=== PATIENT | male | born 1960 | race Caucasian/White ===

== ENCOUNTER 2018-12-13 15:30 | Emergency (ER) | payer BC, OTHER ==
[2018-12-13 15:43] VITALS: BP 113/71; PULSE 87; TEMP 99.8; BMI 29.0
[2018-12-13] MEDS ORDERED: predniSONE 20 MG TABLET (UD) PO ONE (16:11)
[2018-12-13] MEDS ORDERED: SODIUM CHLORIDE 1,000 ML IV STA (16:11)
[2018-12-13] MEDS ORDERED: ALBUTEROL SO4 2.5/IPRATROPIUM 0.5 INH SOL 3 ML VIAL.NEB. NEB ONE ×2 (16:11→16:15)
[2018-12-13] MEDS ORDERED: predniSONE 20 MG TABLET (UD) ONE (16:15)
--- NOTE | 2018-12-13 16:43 | PDOC ---
History of Present Illness - History of Present Illness Initial Comments: 12/13/18 16:44 The patient is a 58 year old male with a past medical history of autoimmune hepatitis and BPH who presents to the emergency department for evaluation of productive cough and wheezing since Wednesday. Patient reports productive cough with green sputum since Wednesday. He reports associated episodes of shortness of breath with wheezing, subjective fever, and generalized weakness since Wednesday. Patient reports pain with coughing. He reports visiting an Urgent Care today where he tested positive for type A influenza after having a nasal swab done. Patient states he was started on tamiflu prior to arrival. He reports visiting the emergency department due to concern for possible pneumonia and to have chest x-ray done. Denies receiving flu vaccination this year. The patient denies chest pain, headache, and dizziness. Denies fevers, chills, nausea, vomiting, diarrhea, and constipation. Denies urinary urgency, frequency , dysuria, and hematuria. Allergies: No known drug allergies. Social history: No reported cigarette, alcohol, or drug use. <Jus Koenig - Last Filed: 12/13/18 16:44> - General History Source: Patient Exam Limitations: No Limitations <Cheikh Bliss - Last Filed: 12/13/18 17:16> - General Chief Complaint: Respiratory Stated Complaint: COUGH Time Seen by Provider: 12/13/18 15:44 Past History <Jus Koenig - Last Filed: 12/13/18 16:44> - Past Medical History COPD: No Disorders: Yes (H/O BPH) Other medical history: H/O AUTOIMMUNE HEPATITIS, PT STATES CURED - Suicide/Smoking/Psychosocial Hx Smoking History: Never smoked Have you smoked in the past 12 months: No Information on smoking cessation initiated: No Hx Alcohol Use: (social) <Cheikh Bliss - Last Filed: 12/13/18 17:16> - Past Medical History Allergies/Adverse Reactions: Allergies Allergy/AdvReac Type Severity Reaction Status Date / Time No Known Allergies Allergy Verified 12/13/18 15:31 Home Medications: Ambulatory Orders Albuterol Sulfate Inhaler - [Ventolin HFA Inhaler -] 1 - 2 inh PO Q4H #1 inhaler 12/13/18 Azithromycin 250 mg PO DAILY #6 tablet 12/13/18 Oseltamivir Phosphate [Tamiflu] 75 mg PO BID 12/13/18 predniSONE [Deltasone -] 40 mg PO DAILY #4 tablet 12/13/18 Review of Systems - Review of Systems Comments:: GENERAL/CONSTITUTIONAL: (+)subjective fever. No chills. No weakness. HEAD, EYES, EARS, NOSE AND THROAT: No change in vision. No ear pain or discharge. No sore throat. CARDIOVASCULAR: (+)shortness of breath. No chest pain. RESPIRATORY: (+)productive cough. (+)wheezing. No hemoptysis. GASTROINTESTINAL: No nausea, vomiting, diarrhea or constipation. GENITOURINARY: No dysuria, frequency, or change in urination. MUSCULOSKELETAL: No joint or muscle swelling or pain. No neck or back pain. SKIN: No rash NEUROLOGIC: No headache, vertigo, loss of consciousness, or change in strength/ sensation. ENDOCRINE: No increased thirst. No abnormal weight change. HEMATOLOGIC/LYMPHATIC: No anemia, easy bleeding, or history of blood clots. ALLERGIC/IMMUNOLOGIC: No hives or skin allergy. <Jus Koenig - Last Filed: 12/13/18 16:44> *Physical Exam - Vital Signs Last Vital Signs Temp Pulse Resp BP Pulse Ox 99.8 F H 87 18 113/71 96 12/13/18 15:30 12/13/18 15:30 12/13/18 15:30 12/13/18 15:30 12/13/18 15:30 - Physical Exam Comments: GENERAL: Awake, alert, and fully oriented, in no acute distress HEAD: No signs of trauma EYES: PERRLA, EOMI, sclera anicteric, conjunctiva clear NECK: Normal ROM, supple. LUNGS: (+)Diffuse expiratory wheezing bilaterally. HEART: Regular rate and rhythm, normal S1 and S2, no murmurs, rubs or gallops EXTREMITIES: Normal range of motion, no edema. No clubbing or cyanosis. No cords, erythema, or tenderness NEUROLOGICAL: Cranial nerves II through XII grossly intact. Normal speech, normal gait SKIN: Warm, Dry, normal turgor, no rashes or lesions noted. <Jus Koenig - Last Filed: 12/13/18 16:44> - Vital Signs Last Vital Signs Temp Pulse Resp BP Pulse Ox 99.8 F H 87 18 113/71 96 12/13/18 15:30 12/13/18 15:30 12/13/18 15:30 12/13/18 15:30 12/13/18 15:30 <Cheikh Bliss - Last Filed: 12/13/18 17:16> Moderate Sedation - Procedure Monitoring Vital Signs: Procedure Monitoring Vital Signs Temperature 99.8 F H 12/13/18 15:30 Pulse Rate 87 12/13/18 15:30 Respiratory Rate 18 12/13/18 15:30 Blood Pressure 113/71 12/13/18 15:30 O2 Sat by Pulse Oximetry (%) 96 12/13/18 15:30 <Jus Koenig - Last Filed: 12/13/18 16:44> - Procedure Monitoring Vital Signs: Procedure Monitoring Vital Signs Temperature 99.8 F H 12/13/18 15:30 Pulse Rate 87 12/13/18 15:30 Respiratory Rate 18 12/13/18 15:30 Blood Pressure 113/71 12/13/18 15:30 O2 Sat by Pulse Oximetry (%) 96 12/13/18 15:30 <Cheikh Bliss - Last Filed: 12/13/18 17:16> ED Treatment Course - LABORATORY CBC & Chemistry Diagram: 12/13/18 16:34 12/13/18 16:34 - Medications Given in the ED: ED Medications Discontinued Medications Generic Name Dose Route Start Last Admin Trade Name Freq PRN Reason Stop Dose Admin Prednisone 40 mg 12/13/18 16:11 12/13/18 16:20 Deltasone - PO 12/13/18 16:12 40 mg ONCE ONE Administration <Jsu Koenig - Last Filed: 12/13/18 16:44> - LABORATORY CBC & Chemistry Diagram: 12/13/18 16:34 12/13/18 16:34 - RADIOLOGY Radiology Studies Ordered: Category Date Time Status CHEST X-RAY PORTABLE* [RAD] Stat Radiology 12/13/18 16:11 Taken - Medications Given in the ED: ED Medications Discontinued Medications Generic Name Dose Route Start Last Admin Trade Name Freq PRN Reason Stop Dose Admin Prednisone 40 mg 12/13/18 16:11 12/13/18 16:20 Deltasone - PO 12/13/18 16:12 40 mg ONCE ONE Administration <Cheikh Bliss - Last Filed: 12/13/18 17:16> Medical Decision Making - Medical Decision Making 12/13/18 16:38 A portion of this note was documented by scribe services under my direction. I have reviewed the details of the note, within reason, and agree with the documentation with the following case summary and management plan written by me. Patient treated in the ED. Nursing notes are reviewed and incorporated into the medical decision-making. Vital signs reviewed. Peripheral IV access obtained by the nurse, laboratory studies are drawn and sent, reviewed and interpreted by myself. Vital Signs Temp Pulse Resp BP Pulse Ox 99.8 F H 87 18 113/71 96 12/13/18 15:30 12/13/18 15:30 12/13/18 15:30 12/13/18 15:30 12/13/18 15:30 58 year old male with past medical history of autoimmune hepatitis in remission , lip carcinoma s/p Moh's resection, BPH s/p TURP p/w weakness, cough, wheezing. Two days ago, started to develop greenish productive cough, tactile fevers and chills. Went to urgent care at [place] [facility] and was diagnosed with influenza type A and was prescribed tamiflu. However, pt reported feeling wheezing, tight breath sounds, and generally weak. The patient is quite wheezy. Will treat with duonebs and prednisone. However, will obtain chest xray to r/o PNA. Labs. I suspect that the patient has influenza with possible bronchitis or pneumonia. Reassess. 12/13/18 17:11 CURB 65 = 0 Pt reports significant improvement with steroids and duoneb. Chest xray starting to developing some questionable early right sided infiltrate. Will treat as broncho-pneumonia. Initiate azithromycin. Will d/c with albuterol and prednisone. Pt encouraged to take tamiflu. Pt feels like he can go home. Supportive care and f/u with PMD. I discussed the physical exam findings, ancillary test results and final diagnoses with the patient. I answered all of the patient's questions. The patient was satisfied with the care received and felt comfortable with the discharge plan and treatment plan. The patient will call their primary care physician within 24 hours to arrange follow-up and will return to the Emergency Department with any new, persistant or worsening symptoms. <Cheikh Bliss - Last Filed: 12/13/18 17:16> *DC/Admit/Observation/Transfer - Attestations Scribe Attestion: Documentation prepared by Jus Koenig, acting as medical illustrator for Cheikh Bliss MD. <Jus Koenig - Last Filed: 12/13/18 16:44> - Discharge Dispostion Decision to Admit order: No <Cheikh Bliss - Last Filed: 12/13/18 17:16> Diagnosis at time of Disposition: Bronchitis, Influenza - Discharge Dispostion Disposition: HOME Condition at time of disposition: Stable - Prescriptions Prescriptions: Albuterol Sulfate Inhaler - [Ventolin HFA Inhaler -] 1 - 2 inh PO Q4H #1 inhaler Azithromycin 250 mg PO DAILY #6 tablet predniSONE [Deltasone -] 40 mg PO DAILY #4 tablet - Patient Instructions Printed Discharge Instructions: DI for Acute Bronchitis, DI for Influenza -- Adult Additional Instructions: Continue taking the albuterol every 4 hours as needed for wheezing. Take 40 mg prednisone daily. Continue taking the tamiflu. Please start taking the azithromcyin. Follow up with your doctor.
[2018-12-13 16:59] LABS: HEMATOCRIT 42.7 % (35.4-49); HEMOGLOBIN 13.8 GM/dl (11.7-16.9); MCHC 32.3 g/dl (32.0-35.9); MEAN CELL VOLUME 89.7 fl (80-96); MEAN PLT VOLUME 8.5 fl (7.5-11.1); PLATELET COUNT 240 K/MM3 (134-434); RBC 4.76 M/mm3 (4.00-5.60); WHITE BLOOD COUNT 10.5 K/mm3 (4.0-10.8)
[2018-12-13 17:01] LABS: ALBUMIN 3.6 g/dl (3.4-5.0); ALK PHOS 67 U/L (45-117); ANION GAP 11 MMOL/L (8-16); BILIRUBIN,TOTAL 0.7 mg/dl (0.2-1); BLOOD UREA NITROGEN 10 mg/dl (7-18); CALCIUM 8.5 mg/dl (8.5-10); CHLORIDE 99 mmol/L (98-107); CO2 25 mmol/L (21-32); CREATININE 0.9 mg/dl (0.55-1.3); GLUCOSE,RANDOM 107 mg/dl (74-106); POTASSIUM 4.1 mmol/L (3.5-5.1); SGOT/AST 26 U/L (15-37); SGPT/ALT 28 U/L (13-61); SODIUM 135 mmol/L (136-145)
[2018-12-13 19:17] LABS: PLATELET ESTIMATE ADEQUATE
== END 2018-12-13 17:35 | disposition home or self-care (01) ==
LOC: FER 15:30
PROC: 3E0337Z Introduction of Electrolytic and Water Balance Substance into Peripheral Vein, Percutaneous Approach (ICD-10-PCS; principal; 2018-12-13)
PROC: 3E0F7GC Introduction of Other Therapeutic Substance into Respiratory Tract, Via Natural or Artificial Opening (ICD-10-PCS; 2018-12-13)
DX: J11.1 Influenza due to unidentified influenza virus with other respiratory manifestations (principal); K75.4 Autoimmune hepatitis; N40.0 Benign prostatic hyperplasia without lower urinary tract symptoms
CPT/HCPCS: 36415; 71045-TC-FY; 80053; 85025; 99283-25; J7030